=== PATIENT | male | born 1945 | race Caucasian/White ===

== ENCOUNTER 2017-12-04 18:00 | Emergency (ER) | payer OTHER ==
[~2017-12-04] VITALS: Ht 190.5 cm; Wt 71.2 kg
== END 2017-12-05 08:20 | disposition home or self-care (01) ==
LOC: ER 18:00 → CPU-OBS 18:24 → ER 12-05 08:20
DX: I95.89 Other hypotension (principal); Z93.59 Other cystostomy status

== ENCOUNTER 2018-04-03 11:15 | Emergency (ER) | payer OTHER ==
[~2018-04-03] VITALS: Ht 167.6 cm; Wt 69.9 kg
[2018-04-03] MEDS ORDERED: PAXIL30 MG PO (11:48)
[2018-04-03] MEDS ORDERED: COUMADIN5 MG PO (11:49)
[2018-04-03] MEDS ORDERED: TOPROL XL25 M1 PO (11:49)
[2018-04-03] MEDS ORDERED: DIGOXIN0.25 MG/5 PO (11:49)
[2018-04-03] MEDS ORDERED: HUMULIN N100 UNIT/2 SUBCUTANEO (11:50)
[2018-04-03] MEDS ORDERED: FORTAMET1000 MG PO (11:50)
[2018-04-03] MEDS ORDERED: VITACEL TABLET1 EACH PO (11:50)
[2018-04-03] MEDS ORDERED: ATORVASTATIN CA40 MG PO (11:51)
[2018-04-03] MEDS ORDERED: TAMS0.4C PO (11:51)
== END 2018-04-03 14:33 | disposition home or self-care (01) ==
LOC: ER 11:15
DX: T83.89XA Other specified complication of genitourinary prosthetic devices, implants and grafts, initial encounter (principal); Y73.1 Therapeutic (nonsurgical) and rehabilitative gastroenterology and urology devices associated with adverse incidents; Y92.89 Other specified places as the place of occurrence of the external cause